=== PATIENT | male | born 1975 | race American Indian/Alaskan Native ===

== ENCOUNTER 2020-08-13 22:30 | Emergency (ER) | payer SELFPAY ==
--- NOTE | 2020-08-14 00:51 | Emergency Department Report ---
Stated Complaint: HBP MED REFILL - HPI History of Present Illness: 44-year-old -[place] male presents to the emergency room stating he needs a new prescription for his blood pressure medication. Patient states that he has been out of his medicine for 2 days. Patient does not have any chest pain or shortness of breathing. Patient states he takes amlodipine. Patient reports he recently relocated from [place] and ran out of his medication. - Exam Physical Exam: Patient is alert and oriented x3 no acute distress nontoxic in appearance Lungs no labored breathing no accessory muscles use Pulse is 65 Patient is ambulatory without difficulties. MSE screening note: Focused history and physical exam performed. Due to findings the following was ordered: 44-year-old -[place] male presents to the emergency room stating he needs a new prescription for his blood pressure medication. Patient states that he has been out of his medicine for 2 days. Patient does not have any chest pain or shortness of breathing. Patient states he takes amlodipine. Patient reports he recently relocated from [place] and ran out of his medication. Discussed with patient that he can follow-up with a urgent care or primary care provider in the morning to have his blood pressure medicines refilled. Patient has a stable blood pressure of 153/91. ED Disposition for MSE Disposition: Z-07 MED SCREENING EXAM-LEFT Is pt being admited?: No Does the pt Need Aspirin: No Condition: Stable Additional Instructions: Follow-up with a primary care provider or urgent care for your refill on your blood pressure medication. Referrals: YASMIN HDEZ MD [Primary Care Provider] - 3-5 Days [facility] [Provider Group] - 3-5 Days ROSE MARY CHOI MD [Staff Physician] - 3-5 Days
[2020-08-14 00:52] VITALS: BP 153/91
== END 2020-08-14 01:00 | disposition left against medical advice (07) ==
LOC: ED 22:30
DX: I10 Essential (primary) hypertension (principal); Z76.0 Encounter for issue of repeat prescription